=== PATIENT | male | born 2000 | race Hispanic/Latino ===

== ENCOUNTER 2024-04-15 09:01 | Emergency (ER) | payer BC ==
[~2024-04-15] VITALS: Ht 175.3 cm; Wt 77.1 kg
[2024-04-15] MEDS: KETOROLAC 15MG/ML VIAL (15MG/ML) IM ONE (10:02)
[2024-04-15 13:08] VITALS: BP 133/72; PULSE 76; RESP 14; O2SAT 100
== END 2024-04-15 13:25 | disposition home or self-care (01) ==
LOC: EDH 09:01
DX: M79.672 Pain in left foot (principal); E11.9 Type 2 diabetes mellitus without complications
CPT/HCPCS: 99284; 82948; 73610; 73630; 96372; J1885